=== PATIENT | male | born 1990 | race African-American/Black ===

== ENCOUNTER 2021-08-15 00:38 | Emergency (ER) | payer BC ==
[2021-08-15] MEDS ORDERED: Lidocaine 1% with EPINEPHrine 1:100,000 10 ML MDV INJECT ONE (00:52)
[2021-08-15] MEDS ORDERED: Amoxicillin/Clavulanate K 875-125 MG Tab PO ONE (01:13)
[2021-08-15] MEDS ORDERED: Diphtheria,Pertussis(Acell),Tetanus Vaccine 0.5 ML Syringe IM ONE (01:21)
== END 2021-08-15 01:36 | disposition home or self-care (01) ==
LOC: MW.ED 00:38
DX: S61.411A Laceration without foreign body of right hand, initial encounter (principal); Z23 Encounter for immunization; W26.8XXA Contact with other sharp object(s), not elsewhere classified, initial encounter
CPT/HCPCS: 12001; 73120; 90471; 90715; 99283; A9270; 99282

== ENCOUNTER 2021-08-16 16:48 | Emergency (ER) | payer BC | END 2021-08-16 19:05 | disposition left against medical advice (07) | LOC: MW.ED 16:48 | DX: Z53.21 Procedure and treatment not carried out due to patient leaving prior to being seen by health care provider (principal) ==